=== PATIENT | female | born 1955 | race Two or more races ===

== ENCOUNTER 2020-03-30 09:01 | Day surgery (SDC) | payer OTHER, SELFPAY ==
[~2020-03-30] VITALS: Ht 154.9 cm; Wt 69.9 kg
[2020-03-30] MEDS ORDERED: MIDAZOLAM 2 MG/2 ML VIAL ONE (10:13)
[2020-03-30] MEDS ORDERED: fentaNYL citrate 0.05 MG/ML VIAL ONE (10:13)
[2020-03-30] MEDS ORDERED: LIDOCAINE 2% 100 MG/5 ML UJET TP ONE ×2 (10:14→11:25)
[2020-03-30] MEDS ORDERED: MIDAZOLAM 2 MG/2 ML VIAL IVP ONE (11:25)
[2020-03-30] MEDS ORDERED: fentaNYL citrate 0.05 MG/ML VIAL IVP ONE (11:25)
== END 2020-03-30 11:58 | disposition home or self-care (01) ==
LOC: MDS 09:01 → MFCC 09:02 → MDS 11:58
PROVIDERS: ATTEND Internal Medicine Gastroenterology
DX: Z12.11 Encounter for screening for malignant neoplasm of colon (principal); K63.5 Polyp of colon; I10 Essential (primary) hypertension; Z11.59 Encounter for screening for other viral diseases; Z98.890 Other specified postprocedural states; Z79.82 Long term (current) use of aspirin; Z79.899 Other long term (current) drug therapy
CPT/HCPCS: 45385; J2250; J3010; U0003